=== PATIENT | female | born 1960 | race Caucasian/White ===

== ENCOUNTER → 2020-03-30 20:54 | Outpatient (CLI) | payer OTHER ==
[2020-03-30 23:03] LABS: BASOPHILS 0.8 % (0-2); EOSINOPHILS 5.8 % (0-7); HEMATOCRIT 39.9 % (36.0-48.0); HEMOGLOBIN 13.4 g/dL (12-16); IMMATURE GRANULOCYTES 0.2 % (0-5); LYMPHOCYTES 18.2 % (15-50); MCH 30.1 pg (26.0-34.0); MCHC 33.6 g/dL (31.0-37.0); MCV 89.7 fL (80.0-100.0); MONOCYTES 8.7 % (2-11); NEUTROPHILS 66.3 % (40-80); PLATELET COUNT 371 10x3/uL (130-400); RBC 4.45 10x6/uL (4.00-5.40); WBC 6.1 10x3/uL (4.8-10.8)
[2020-03-30 23:21] LABS: BILIRUBIN - TOTAL 0.24 mg/dL (0.2-1.3); CALCIUM 8.6 mg/dL (8.5-10.1); CREATININE - SERUM 0.9 mg/dL (0.6-1.3); POTASSIUM - SERUM 4.8 mmol/L (3.5-5.1); PROTEIN - SERUM 6.8 g/dL (6.4-8.2)
[2020-03-30 23:35] LABS: ANION GAP 11.8 mmol/L (8-16)
== END | disposition home or self-care (01) ==
LOC: D.LABREF 20:54
PROVIDERS: ATTEND Orthopaedic Surgery
DX: M17.12 Unilateral primary osteoarthritis, left knee (principal); E87.1 Hypo-osmolality and hyponatremia

== ENCOUNTER 2020-08-15 13:18 | Inpatient (IN) | payer OTHER ==
[~2020-08-15] VITALS: Ht 152.4 cm; Wt 73.6 kg
[~2020-08-15 13:18] MED LIST: ADVAIR 250-501 EAC1 INH; AMOXICILLIN500 M1 PO; CITRACAL + D E1 EACH; DETROL LA4 MG PO; DIOVAN320 MG PO; DULCOLAX STOOL100 MG PO; ELIQUIS2.5 MG PO; HYDROCODON-ACE1 EA10 PO; HYDROXYZINE HCL50 MG PO; KLONOPIN0.5 MG PO; LIPITOR20 MG PO; NEURONTIN800 MG PO; NICODERM CQ1 EAC3 TOPICAL; REQUIP3 MG; SINGULAIR10 MG PO; SYNTHROID125 MCG PO; THERMOTABS 1 GM1 GM PO; VISTARIL50 MG PO; ZOFRAN ODT4 MG/UDTAB PO
[2020-09-15] MEDS ORDERED: MUCINEX DM ER1 EAC1 PO (13:50)
[2020-09-15] MEDS ORDERED: CITRACAL + D E1 EACH PO (13:50)
[2020-09-15] MEDS ORDERED: [UNRECOGNIZED DRUG - OTHER] PO (13:51)
[2020-09-15] MEDS ORDERED: OMEPRAZOLE40 MG PO (13:51)
[2020-09-15 15:09] LABS: EOSINOPHILS 8.3 % (0-7); HEMATOCRIT 38.4 % (36.0-48.0); IMMATURE GRANULOCYTES 0.2 % (0-5); LYMPHOCYTE ABS# 1.22 10x3/uL (1.18-3.74); LYMPHOCYTES 20.7 % (15-50); MCHC 33.9 g/dL (31.0-37.0); MCV 85.5 fL (80.0-100.0); MEAN PLATELET VOLUME 8.3 fL (7.4-10.4); MONOCYTES 7.3 % (2-11); NEUTROPHIL ABS# 3.69 10x3/uL (1.56-6.13); NEUTROPHILS 62.5 % (40-80); RBC 4.49 10x6/uL (4.00-5.40); RDW 13.5 % (11.5-14.5); WBC 5.9 10x3/uL (4.8-10.8)
[2020-09-15 15:12] LABS: APTT 32.2 SECONDS (22.8-39.4); INR 0.97 (0.85-1.17); PROTIME 11.9 SECONDS (11.6-15.0)
[2020-09-15 15:13] LABS: PLATELET COUNT 336 10x3/uL (130-400)
[2020-09-15 15:14] LABS: ANION GAP 6.9 mmol/L (8-16); CALCIUM 8.9 mg/dL (8.5-10.1); CARBON DIOXIDE 28.8 mmol/L (21.0-32.0); CREATININE - SERUM 0.9 mg/dL (0.6-1.3); POTASSIUM - SERUM 4.7 mmol/L (3.5-5.1)
[2020-09-15 15:18] LABS: BILIRUBIN NEGATIVE (NEGATIVE); KETONE NEGATIVE (NEGATIVE); NITRITE NEGATIVE (NEGATIVE); UROBILINOGEN NORMAL mg/dL (< 2)
[2020-09-19] VITALS (8 sets, daily range): BP systolic 100–131; BP diastolic 59–76; Ht 152.4 cm; Wt 73.6 kg
--- NOTE | 2020-09-19 11:31 | NUR ---
PLASMA BLADE SET 6/8 BOVIE PAD LEFT THIGH [id number] EXP 03/13/22 TRAFFIC MONITORED IN ANDN OUT OF THE ROOM AND KEPT TO A MINIMUM
--- NOTE | 2020-09-19 14:05 | NUR ---
RECIEVED FROM PACU PER BED. ALERT AND ORIENTED. DRESSING CLEAN DRY AND INTACT WITH RENU COMPRESSED DRAIN TO RIGHT SHOULDER. OXYGEN AT 3L PER NC. SCDS AND FAY HOSE ON BILAT AND CONNECTED TO MACHINE. ASSESSMENT COMPLETED. CALL LIGHT IN REACH
--- NOTE | 2020-09-19 16:15 | NUR ---
UP TO BR FOR THE 3RD TIME. STILL UNABLE TO VOIDE. BLADDER SCAN SHOWED OVER 400CC. I/O CATH USING STERILE TECHNIQUE RETURNED 700CC CLEAR YELLOW URINE.
--- NOTE | 2020-09-19 19:03 | NUR ---
FAMILY BROUGHT FOOD IN FROM OUTSIDE AND PATIENT ATE A LARGE DINNER. NO CHANGES NOTED. DENIES NEEDS.
--- NOTE | 2020-09-19 19:30 | NUR ---
ASSISTED UP TO BATHROOM UNABLE TO VOID, BACK TO BED HODGSON CATH PLACED WITH RETURN OF CLEAR PALE YELLOW URINE 600CC, DENIES PAIN AT THIS TIME, SEE SHIFT ASSESSMENT, CALL LIGHT IN REACH
[2020-09-20 00:20] VITALS: BP 135/74
[2020-09-20 04:00] VITALS: BP 136/73
[2020-09-20 07:37] LABS: CALC OSMOLALITY 243 mosm/kg (275-300); CALCIUM 8.5 mg/dL (8.5-10.1); CARBON DIOXIDE 22.6 mmol/L (21.0-32.0); CHLORIDE - SERUM 87 mmol/L (98-107); CREATININE - SERUM 0.8 mg/dL (0.6-1.3); GLUCOSE 106 mg/dL (74-106); POTASSIUM - SERUM 4.1 mmol/L (3.5-5.1); SODIUM 121 mmol/L (136-145); UREA NITROGEN 12 mg/dL (7-18); eGFR NON AFRICAN AMERICAN 77 mL/min (90-120)
[2020-09-20 07:43] LABS: BASOPHILS 0.1 % (0-2); EOSINOPHILS 0.1 % (0-7); HEMATOCRIT 35.4 % (36.0-48.0); HEMOGLOBIN 11.8 g/dL (12-16); IMMATURE GRANULOCYTES 0.3 % (0-5); LYMPHOCYTE ABS# 1.02 10x3/uL (1.18-3.74); LYMPHOCYTES 6.9 % (15-50); MCH 28.5 pg (26.0-34.0); MCHC 33.3 g/dL (31.0-37.0); MCV 85.5 fL (80.0-100.0); MEAN PLATELET VOLUME 8.4 fL (7.4-10.4); MONOCYTES 7.7 % (2-11); NEUTROPHIL ABS# 12.62 10x3/uL (1.56-6.13); NEUTROPHILS 84.9 % (40-80); PLATELET COUNT 371 10x3/uL (130-400); RBC 4.14 10x6/uL (4.00-5.40); RDW 13.9 % (11.5-14.5); WBC 14.9 10x3/uL (4.8-10.8)
[2020-09-20 07:46] VITALS: BP 125/74
--- NOTE | 2020-09-20 08:03 | NUR ---
RESTING IN BED, NO DISTRESS NOTED, HODGSON TO GRAVITY, DRESSING TO R SHOULDER DRY AND INTACT, DRAIN IN PLACE TO R SHOULDER, CONT TO MONITOR PT O2 SAT, REGISTERED 90% ON ROOM AIR, PT APPLIED O2 PER NC
[2020-09-20] MEDS ORDERED: HYDROXYZINE HCL50 MG PO (08:13)
[2020-09-20] MEDS ORDERED: HYDROCODON-ACE1 EA10 PO (08:13)
--- NOTE | 2020-09-20 08:19 | OP ---
PATIENT NAME: GEORGIA POOLE MEDICAL RECORD: [id number] :56 LOCATION:D. D.1213 ADMISSION DATE:09/19/20 SURGEON: VINH BAKER DO DATE OF OPERATION: 09/19/2020 PROCEDURE PERFORMED: Right reverse total shoulder arthroplasty. PREOPERATIVE DIAGNOSIS: Right shoulder rotator cuff tear arthropathy POSTOPERATIVE DIAGNOSIS: Right shoulder rotator cuff tear arthropathy. INDICATIONS: Ms. Poole is a 60-year-old female who has had right shoulder pain for quite some time. She had the left shoulder replaced at another facility. She wanted the right one done here. She was tired of dealing with the pain and weakness and on exam indeed did have supraspinatus weakness on AP. She had a high riding humeral head indicating rotator cuff tear arthropathy. She wanted something done surgically. She was aware of the risks including infection, bleeding, fracture, damage to the axillary nerve or other nerves in the area, continued pain, loss of motion of the shoulder, blood clots and even and she signed the consent. SURGEON: Vinh Baker DO DESCRIPTION OF PROCEDURE: The patient received a block by anesthesia in the preoperative area, given 900 mg of clindamycin, taken to the operative suite, laid in supine position, given general anesthetic, intubated. She was given a gram of TXA and placed in the beach chair position. The right shoulder was then prepped and draped in sterile fashion. Timeout was performed, everyone was in agreeance with the correct side, site, patient and procedure. I then began by making an incision of the deltopectoral interval. Careful dissection down to the cephalic vein, took it laterally and then made careful dissection down to the pectoralis tendon, released the proximal centimeter so of it and tenodesed the biceps tendon to it. I then followed the bicipital groove up into the shoulder, opened up rotator interval, tagged the supraspinatus and peeled it off the lesser tuberosity. I then cut the humeral head and then exposed the glenoid, removed the labrum, put a centering pin in and reamed in and put a baseplate in, put a 30 screw in the center, 25 on the superior anterior hole and the two 20s on the posterior holes, superior and inferior. I then impacted on the glenosphere, exposed the humerus, reamed and broached. I needed to take more humerus as it was too tight. I removed the trials and cut more humerus. I then went to an 11 stem and trialed the standard tray and it reduced, it fit very well and had good tension on the deltoid as well as the conjoined tendon. I then dislocated that, removed that and put in the actual implants after irrigating it, and it reduced very well, and had good mobility and good tension on the deltoid fibers as well as the conjoined tendon. We then irrigated with 10% povidone iodine with 500 mL of normal saline solution. Bolivar Jang, certified surgical first mate then irrigated that out, put a drain exiting posteriorly, and then put in Davina and vancomycin and tobramycin powder, then closed the wound with 2-0 Vicryl in inverted interrupted fashion, 4-0 Monocryl ran on the skin and Prineo glue on the skin. I then secured the drain with two Tegaderms and then put Telfa and Tegaderm on the incision. She was awakened, put in a sling, taken to recovery in stable condition. Blood loss was approximately 200 mL. COMPLICATIONS: None. OPERATIVE REPORT [id number] GEORGIA POOLE TRANSINT:[id number] Voice Confirmation ID: [id number] DOCUMENT ID: [id number] VINH BAKER DO at 0819 CC: [id number] DICTATION DATE: 09/19/20 1207 OIL PUMP STATION OPERATOR CHIEF: 09/19/20 1615 ADM IN [facility] [id number] [place] [address]
--- NOTE | 2020-09-20 08:42 | NUR ---
IV D/C TIP INTACT, HODGSON REMOVED, PT EDUCATED ON S/S OF INFECTION
--- NOTE | 2020-09-20 09:20 | NUR ---
RENU DRAIN REMOVED, MARINA WELL, REVIEWED DC PAPERS, RX PROVIDED
--- NOTE | 2020-09-20 09:40 | NUR ---
TAKEN TO PRIVATE VEHICLE PER W/C, MARINA WELL
--- NOTE | 2020-09-20 20:46 | MORECARE ---
CASE MANAGEMENT DISCHARGE SUMMARY PATIENT: GEORGIA POOLE UNIT: [id number] ADM DATE: 09/19/20 AGE: 60 : 56 SEX: F ROOM/BED: D.1213 AUTHOR: PARTH,DOC PHYSICIAN: REFERRING PHYSICIAN: RUDI BAKER DO DATE OF SERVICE: 09/20/20 Discharge Plan Patient Name: GEORGIA POOLE Facility: [facility]:[place] : 1960 Planned Disposition: Home Anticipated Discharge Date: Discharge Date: 09/20/2020 Expected LOS: Initial Reviewer: [email or web address] Initial Review Date: 09/19/2020 Generated: 09/20/20 9:45 pm Comments DCP- Discharge Planning Updated by [email or web address]: Megan Dasilva on 09/20/20 7:[address] Patient Name: GEORGIA POOLE Admission Status: Elective Accout number: [id number] Admission Date: 09-19-2020 : 1960 Admission Diagnosis: Attending: RUDI BAKER Current LOS: 1 Anticipated DC Date: Planned Disposition: Home Primary Insurance: [employer] Discharge Planning Comments: CM spoke with patient to complete initial dc planning assessment. CM educated patient on the CM role and verbal consent given by patient to complete assessment. Patient lives at home with family. Patient is independent. At discharge patient plans to return home and feels this is a safe discharge. CM discussed availability of home health, rehab services, and medical equipment. Patient will have family to transport home. Patient denied known discharge needs at this time. CM will continue to follow and will assist as needed with dc plans/needs. Assembler Metal Furniture: Megan Dasilva DCPIA - Discharge Planning Initial Assessment Updated by [email or web address]: Megan Dasilva on 09/20/20 8:45 pm * Is the patient Alert and Oriented? Yes * How many steps to enter\exit or inside your home? * PCP WARE * [facility] [address] [facility] - [facility] * Preadmission Environment Home with Family * ADLs Independent * Equipment Walker * List name and contact numbers for known caregivers / representatives who currently or will assist patient after discharge: ZEHRA HAYES - DAUGHTER - [phone] * Verbal permission to speak to the caregivers and representatives has been obtained from the patient. Yes * Community resources currently utilized None * Additional services required to return to the preadmission environment? No * Can the patient safely return to the preadmission environment? Yes * Has this patient been hospitalized within the prior 30 days at any hospital? No Patient Name: GEORGIA POOLE Page 27815 at 2046 All edits/amendments must be made on the electronic document DICTATION DATE: 09/20/202045 DISTRIBUTION DESIGNER: HAKEEM 09/20/202045 RPT#: [id number] DC DATE:09/20/20 STATUS: DIS IN [facility] [address] [place] [address] END OF REPORT
== END 2020-09-20 09:40 | disposition home or self-care (01) | DRG 483 ==
LOC: D.M3 09-19 07:45 → D.OPS 09-19 07:45 → EDSTATUS 09-19 08:00 → D.OPS 09-19 09:30 → D.M3 09-19 09:30 → D.OPS 09-19 09:31 → D.M3 09-20 09:40
PROVIDERS: Family Medicine Adult Medicine; ADMIT Orthopaedic Surgery; ATTEND Orthopaedic Surgery
PROC: 0RRJ00Z Replacement of Right Shoulder Joint with Reverse Ball and Socket Synthetic Substitute, Open Approach (ICD-10-PCS; principal; 2020-09-19 09:45)
DX: M19.011 Primary osteoarthritis, right shoulder (principal); E03.9 Hypothyroidism, unspecified; E78.5 Hyperlipidemia, unspecified; I10 Essential (primary) hypertension; G89.29 Other chronic pain; M41.9 Scoliosis, unspecified; F41.8 Other specified anxiety disorders; F31.9 Bipolar disorder, unspecified

== ENCOUNTER 2020-09-25 08:46 | Inpatient (IN) | payer OTHER ==
[~2020-09-25] VITALS: Ht 152.4 cm; Wt 74.1 kg
[~2020-09-25 08:46] MED LIST changes: +CITRACAL + D E1 EACH PO; +MUCINEX DM ER1 EAC1 PO; +OMEPRAZOLE40 MG PO; +[UNRECOGNIZED DRUG - OTHER] PO
--- NOTE | 2020-09-25 09:05 | NUR ---
NASAL SWAB COLLECTED,LABELED AT BS AND SENT TO LAB
--- NOTE | 2020-09-25 09:14 | NUR ---
SL SITEDD LEFT HAND/THUMB AND BCX 1 DRAWN FROM SITE
[2020-09-25 09:59] LABS: BASOPHILS 0.3 % (0-2); EOSINOPHILS 3.8 % (0-7); HEMATOCRIT 31.7 % (36.0-48.0); HEMOGLOBIN 10.7 g/dL (12-16); IMMATURE GRANULOCYTES 0.5 % (0-5); LYMPHOCYTE ABS# 0.64 10x3/uL (1.18-3.74); LYMPHOCYTES 6.7 % (15-50); MCH 28.5 pg (26.0-34.0); MCHC 33.8 g/dL (31.0-37.0); MCV 84.5 fL (80.0-100.0); MONOCYTES 7.7 % (2-11); NEUTROPHIL ABS# 7.75 10x3/uL (1.56-6.13); PLATELET COUNT 307 10x3/uL (130-400); RBC 3.75 10x6/uL (4.00-5.40); RDW 13.7 % (11.5-14.5); WBC 9.6 10x3/uL (4.8-10.8)
[2020-09-25 10:04] LABS: APTT 27.2 SECONDS (22.8-39.4); INR 1.17 (0.85-1.17); PROTIME 13.8 SECONDS (11.6-15.0)
[2020-09-25 10:06] LABS: SARS-CoV-2 ANTIGEN NEGATIVE- SARS-COV-2 (NEGATIVE)
[2020-09-25 10:09] LABS: ALBUMIN 2.7 g/dL (3.4-5.0); ALKALINE PHOSPHATASE 118 U/L (30-120); ALT (SGPT) 28 U/L (10-68); BILIRUBIN - TOTAL 0.52 mg/dL (0.2-1.3); CALC OSMOLALITY 241 mosm/kg (275-300); CALCIUM 8.5 mg/dL (8.5-10.1); CARBON DIOXIDE 30.5 mmol/L (21.0-32.0); CHLORIDE - SERUM 86 mmol/L (98-107); CKMB 2.8 U/L (0.0-3.6); CREATINE KINASE 153 UL (21-215); CREATININE - SERUM 0.6 mg/dL (0.6-1.3); GLUCOSE 84 mg/dL (74-106); PRO BNP 634 pg/mL (0-125); PROTEIN - SERUM 6.4 g/dL (6.4-8.2); SODIUM 121 mmol/L (136-145); TROPONIN-I < 0.017 ng/mL (0.000-0.060); UREA NITROGEN 9 mg/dL (7-18); eGFR NON AFRICAN AMERICAN > 90 mL/min (90-120)
[2020-09-25 10:10] LABS: POTASSIUM - SERUM 2.8 mmol/L (3.5-5.1)
--- NOTE | 2020-09-25 10:25 | NUR ---
COVID ANTIGEN NEGATIVE, DISCUSSED WITH DR OTT RE: SWABBING FOR SEND OUT COVID. DR OTT REPORTS NO NEED OK TO REMOVE FROM ISOLATION. PT NOTIFIED
[2020-09-25 11:11] VITALS: BP 141/87
--- NOTE | 2020-09-25 12:13 | NUR ---
REPORT TO JOSE COLON
[2020-09-25 12:25] VITALS: BP 145/87
--- NOTE | 2020-09-25 12:27 | NUR ---
TRANSPORTED TO ROOM #2208 VIA STRETCHER WITH [employer]IL CARRIER AND O2 @ 2L PNC CONDITION STABLE
--- NOTE | 2020-09-25 14:46 | MORECARE ---
CASE MANAGEMENT DISCHARGE SUMMARY PATIENT: GEORGIA POOLE UNIT: [id number] ADM DATE: 09/25/20 AGE: 60 : 56 SEX: F ROOM/BED: D.2206 AUTHOR: PARTH,DOC PHYSICIAN: REFERRING PHYSICIAN: OSMANY KRISHNAMURTHY MD DATE OF SERVICE: 09/25/20 Discharge Plan Patient Name: GEORGIA POOLE Facility: [facility]:[place] : 1960 Planned Disposition: Home or Self Care Anticipated Discharge Date: Discharge Date: Expected LOS: Initial Reviewer: [email or web address] Initial Review Date: 09/25/2020 Generated: 09/25/20 3:45 pm Comments DCP- Discharge Planning Updated by [email or web address]: Jazmín Aviles on 09/25/20 12:[address] Patient Name: GEORGIA POOLE Admission Status: ER Accout number: [id number] Admission Date: 09-25-2020 : 1960 Admission Diagnosis: Attending: HERNANDEZ Current LOS: 1 Anticipated DC Date: Planned Disposition: Home or Self Care Primary Insurance: [employer] Discharge Planning Comments: CM met with patient to complete initial dc planning assessment. CM educated patient on the CM role and verbal consent given by patient to complete assessment. Patient lives at home & her daughter lives with her. Her daughter will be her water tanker driver home when she is discharged. At discharge patient plans to return home and feels this is a safe discharge. CM discussed availability of home health, rehab services, and medical equipment. Patient denied known discharge needs at this time. CM will continue to follow and will assist as needed with dc plans/needs Mobile Home Park Manager: Jazmín Aviles DCPIA - Discharge Planning Initial Assessment Updated by [email or web address]: Jazmín Aviles on 09/25/20 2:41 pm * Is the patient Alert and Oriented? Yes * How many steps to enter\exit or inside your home? * PCP BARNEY WARE * Pharmacy [facility] [address] * Preadmission Environment Home with Family * ADLs Independent * Equipment Rolling Walker * List name and contact numbers for known caregivers / representatives who currently or will assist patient after discharge: ZEHRA MARTINON [phone] * Verbal permission to speak to the caregivers and representatives has been obtained from the patient. N/A * Community resources currently utilized None * Additional services required to return to the preadmission environment? No * Can the patient safely return to the preadmission environment? Yes * Has this patient been hospitalized within the prior 30 days at any hospital? No Patient Name: GEORGIA POOLE Page 53417 at 1446 All edits/amendments must be made on the electronic document DICTATION DATE: 09/25/201444 FIRER LOW PRESSURE: HAKEEM 09/25/201444 RPT#: [id number] DC DATE: STATUS: ADM IN [facility] [address] [place] [address] END OF REPORT
[2020-09-25 16:51] VITALS: BP 168/69
[2020-09-25 18:37] VITALS: BP 93/73; Ht 152.4 cm; Wt 74.1 kg
--- NOTE | 2020-09-25 20:00 | NUR ---
PT REPORTS SHE TAKES DAILY DOSE OF GABEPENTIN ALL AT ONE TIME AT HOME. NORMALLY 800MG TID, SHE TAKES 2400MG QHS. RELAYED TO [facility]. ORDERS CHANGED PER ELMIRA TO HOW PT IS SUPPOSED TO BE TAKING THEM. CTM.
[2020-09-25 21:33] VITALS: BP 144/59
[2020-09-26 00:39] VITALS: BP 136/73
[2020-09-26 05:15] VITALS: BP 159/80
--- NOTE | 2020-09-26 05:20 | NUR ---
I have reviewed this patient and I concur with the Shift Assessment completed by the Licensed Practical Nurse today this shift.
[2020-09-26 06:07] LABS: CALC OSMOLALITY 249 mosm/kg (275-300); CALCIUM 8.1 mg/dL (8.5-10.1); CARBON DIOXIDE 29.2 mmol/L (21.0-32.0); CHLORIDE - SERUM 90 mmol/L (98-107); CREATININE - SERUM 0.7 mg/dL (0.6-1.3); GLUCOSE 123 mg/dL (74-106); POTASSIUM - SERUM 3.1 mmol/L (3.5-5.1); SODIUM 124 mmol/L (136-145); UREA NITROGEN 10 mg/dL (7-18); eGFR NON AFRICAN AMERICAN 90 mL/min (90-120)
[2020-09-26 06:45] LABS: BASOPHILS 0.1 % (0-2); EOSINOPHILS 1.1 % (0-7); HEMATOCRIT 29.5 % (36.0-48.0); HEMOGLOBIN 9.9 g/dL (12-16); IMMATURE GRANULOCYTES 0.9 % (0-5); LYMPHOCYTE ABS# 0.64 10x3/uL (1.18-3.74); LYMPHOCYTES 8.7 % (15-50); MCH 28.4 pg (26.0-34.0); MCHC 33.6 g/dL (31.0-37.0); MCV 84.5 fL (80.0-100.0); MEAN PLATELET VOLUME 8.3 fL (7.4-10.4); MONOCYTES 7.1 % (2-11); NEUTROPHIL ABS# 6.05 10x3/uL (1.56-6.13); NEUTROPHILS 82.1 % (40-80); RBC 3.49 10x6/uL (4.00-5.40); RDW 13.9 % (11.5-14.5); WBC 7.4 10x3/uL (4.8-10.8)
--- NOTE | 2020-09-26 06:45 | NUR ---
RECEIVED BEDSIDE REPORT. PT LAYING IN BED A&O. PIV TO LEFT FOREARM PATENT AND INFUSING, NO REDNESS OR SWELLING. O2 SAT 98% ON 2L VIA NC. INCISION TO RIGHT SHOULDER, DRSG C/D/I, SLING IN PLACE. ABLE TO AMBULATE AD JOJO. EDUCATED PT ON CL AND NEEDS, VERBALIZED UNDERSTANDING. BED LOW, CL IN REACH.
[2020-09-26 07:06] LABS: PLATELET COUNT 371 10x3/uL (130-400)
[2020-09-26 07:43] VITALS: BP 167/61
--- NOTE | 2020-09-26 09:15 | NUR ---
PT C/O PAIN 02/20, PROVIDED MEDS PER ORDER, TOLERATED WELL. BED LOW, CL IN REACH.
[2020-09-26 12:35] VITALS: BP 136/63
[2020-09-26 15:00] VITALS: BP 156/77
--- NOTE | 2020-09-26 15:54 | NUR ---
PT C/O PAIN 02/20, PROVIDED MEDS PER ORDER, TOLERATED WELL. BED LOW, CL IN REACH.
[2020-09-26 21:11] VITALS: BP 113/55
--- NOTE | 2020-09-27 01:52 | NUR ---
REC'D WALKING ROUNDS CHGE OF SHIFT SITTING ON SIDE OF BED.SLING INTACT TO RIGHT ARM.FINGERS AND NAILBEDS PINK AND WARM,BLANCHES WELL GOOD RADIAL PULSE.WIGGLES WITHOUT DIFFICULTY. WILL CONTINUE TO MONITOR FOR ANY CHGES NEUROVASCULAR STATUS AND FOLLOW CURRENT PLAN OF CAREIV INFILTRATED RESITED LAC #20 X1 STICK.2230)PULLED IV OUT RESITED BY CHILDBIRTH EDUCATOR X1 STICK LEFT WRIST
[2020-09-27 04:37] VITALS: BP 123/74
--- NOTE | 2020-09-27 05:00 | NUR ---
I have reviewed this patient and I concur with the Shift Assessment completed by the Licensed Practical Nurse today this shift.
[2020-09-27 05:35] LABS: BASOPHILS 0.2 % (0-2); EOSINOPHILS 1.8 % (0-7); HEMOGLOBIN 9.5 g/dL (12-16); LYMPHOCYTE ABS# 1.19 10x3/uL (1.18-3.74); LYMPHOCYTES 11.5 % (15-50); MCHC 32.8 g/dL (31.0-37.0); MCV 85.5 fL (80.0-100.0); MEAN PLATELET VOLUME 7.8 fL (7.4-10.4); NEUTROPHIL ABS# 8.03 10x3/uL (1.56-6.13); NEUTROPHILS 77.5 % (40-80); PLATELET COUNT 421 10x3/uL (130-400); RBC 3.39 10x6/uL (4.00-5.40); WBC 10.4 10x3/uL (4.8-10.8)
[2020-09-27 05:54] LABS: ALBUMIN 2.7 g/dL (3.4-5.0); ALKALINE PHOSPHATASE 113 U/L (30-120); BILIRUBIN - TOTAL 0.33 mg/dL (0.2-1.3); CALC OSMOLALITY 258 mosm/kg (275-300); CALCIUM 8.3 mg/dL (8.5-10.1); CARBON DIOXIDE 28.1 mmol/L (21.0-32.0); CHLORIDE - SERUM 94 mmol/L (98-107); CREATININE - SERUM 0.7 mg/dL (0.6-1.3); GLUCOSE 121 mg/dL (74-106); POTASSIUM - SERUM 3.5 mmol/L (3.5-5.1); PROTEIN - SERUM 6.4 g/dL (6.4-8.2); SODIUM 129 mmol/L (136-145); UREA NITROGEN 10 mg/dL (7-18); eGFR NON AFRICAN AMERICAN 90 mL/min (90-120)
[2020-09-27 05:56] LABS: ALT (SGPT) 40 U/L (10-68)
[2020-09-27 07:47] VITALS: BP 154/54
[2020-09-27 12:25] VITALS: BP 177/68
[2020-09-27 17:30] VITALS: BP 173/78
--- NOTE | 2020-09-27 18:50 | NUR ---
bedside shift report completed pt awake alert denies needs, would like pm meds at 8 pm this evenin. no needs reported at this time
[2020-09-27 20:59] VITALS: BP 164/87
[2020-09-28] VITALS: BP 175/70
[2020-09-28 04:00] VITALS: BP 179/91
--- NOTE | 2020-09-28 04:36 | NUR ---
ATTEMPTED WALK TEST FOR HOME O2 QUALIFICATION 02 SAT 78% ON RA AT REST O2 SAT IMPROVED TO 92% ON 2 L NC WITHIN 1 MINUTE OF REAPPLYING O2
[2020-09-28 06:28] LABS: BASOPHILS 0.2 % (0-2); EOSINOPHILS 4.7 % (0-7); HEMATOCRIT 32.8 % (36.0-48.0); HEMOGLOBIN 10.7 g/dL (12-16); IMMATURE GRANULOCYTES 1.3 % (0-5); LYMPHOCYTE ABS# 1.45 10x3/uL (1.18-3.74); LYMPHOCYTES 13.5 % (15-50); MCH 28.2 pg (26.0-34.0); MCHC 32.6 g/dL (31.0-37.0); MCV 86.5 fL (80.0-100.0); NEUTROPHIL ABS# 7.85 10x3/uL (1.56-6.13); NEUTROPHILS 73.3 % (40-80); PLATELET COUNT 499 10x3/uL (130-400); RBC 3.79 10x6/uL (4.00-5.40); RDW 14.3 % (11.5-14.5); WBC 10.7 10x3/uL (4.8-10.8)
[2020-09-28 07:01] LABS: ALKALINE PHOSPHATASE 123 U/L (30-120); ALT (SGPT) 43 U/L (10-68); CALC OSMOLALITY 261 mosm/kg (275-300); CALCIUM 8.3 mg/dL (8.5-10.1); CARBON DIOXIDE 31.8 mmol/L (21.0-32.0); CHLORIDE - SERUM 93 mmol/L (98-107); CREATININE - SERUM 0.7 mg/dL (0.6-1.3); GLUCOSE 111 mg/dL (74-106); POTASSIUM - SERUM 3.9 mmol/L (3.5-5.1); PROTEIN - SERUM 6.3 g/dL (6.4-8.2); SODIUM 131 mmol/L (136-145); UREA NITROGEN 8 mg/dL (7-18); eGFR NON AFRICAN AMERICAN 90 mL/min (90-120)
--- NOTE | 2020-09-28 07:50 | NUR ---
ALERT AND ORIENTED. ASSESSMENT COMPLETE. DAUGHTER AT BEDSIDE. DENIES NEEDS. BED LOW. CALL CASTILLO AND PERSONAL ITEMS IN REACH. WILL CONTINUE TO MONITOR.
[2020-09-28 08:16] VITALS: BP 160/73
--- NOTE | 2020-09-28 09:18 | NUR ---
DC ORDER IN FOR PATIENT. PATIENT WAS STARTED ON IV KEPPRA BUT HAS NOT RECEIVED D/T NO IV. PATIENT TO DC ON PO KEPPRA. DR HARRIS PAGED TO NOTIFY THAT PATIENT HAS NOT RECEIVED KEPPRA AND MAKE SURE STILL WANTS TO DC PATIENT.
--- NOTE | 2020-09-28 10:46 | NUR ---
WALK TEST PERFORMED. O2 SAT 94% ON ROOM AIR AT REST. DURING WALK TEST, O2 DROPPED TO 84% AND CAME BACK UP TO 88% AFTER DEEP BREATHING. O2 REPLACED AT 2L AND PATIENT SAT 96% ON 2L DURING AMBULATION.
[2020-09-28] MEDS ORDERED: VIBRAMYCIN 100100 MG PO (11:52)
[2020-09-28] MEDS ORDERED: FLORAJEN3 CAPS460 MG PO (11:52)
[2020-09-28] MEDS ORDERED: PREDNISONE10 MG PO (11:53)
[2020-09-28] MEDS ORDERED: ALBUTEROL SULF8.5 GM INH (12:17)
--- NOTE | 2020-09-28 12:35 | NUR ---
DC EDUCATION PROVIDED BOTH WRITEN AND VERBAL. VERBALIZED UNDERSTANDING. DENIES FURTHER QUESTIONS. IV REMOVED FROM LEFT HAND WITH TIP INTACT. REFUSES TO WAIT ON HOME O2. NOW BEING DELIVERED TO PATIENT'S HOME. PATIENT DC HOME WITH DAUGHTER WITH ALL BELONGINGS.
== END 2020-09-28 12:37 | disposition home or self-care (01) | DRG 193 ==
LOC: D.ER 08:46 → D.MS 12:26
PROVIDERS: Family Medicine; ADMIT Family Medicine; ATTEND Family Medicine
DX: J18.9 Pneumonia, unspecified organism (principal); J96.01 Acute respiratory failure with hypoxia; J44.1 Chronic obstructive pulmonary disease with (acute) exacerbation; J44.0 Chronic obstructive pulmonary disease with (acute) lower respiratory infection; J45.901 Unspecified asthma with (acute) exacerbation; E87.1 Hypo-osmolality and hyponatremia; F31.30 Bipolar disorder, current episode depressed, mild or moderate severity, unspecified; E87.6 Hypokalemia; D64.9 Anemia, unspecified; I10 Essential (primary) hypertension; E78.5 Hyperlipidemia, unspecified; G89.29 Other chronic pain; M54.9 Dorsalgia, unspecified; N95.9 Unspecified menopausal and perimenopausal disorder; F41.9 Anxiety disorder, unspecified

== ENCOUNTER 2020-10-21 14:14 | Observation (INO) | payer OTHER ==
[~2020-10-21] VITALS: Ht 152.4 cm; Wt 68.2 kg
[~2020-10-21 14:14] MED LIST changes: +ALBUTEROL SULF8.5 GM INH; +FLORAJEN3 CAPS460 MG PO; +PREDNISONE10 MG PO; +VIBRAMYCIN 100100 MG PO
[2020-10-21 14:38] LABS: BASOPHILS 0.5 % (0-2); EOSINOPHILS 12.5 % (0-7); HEMATOCRIT 33.5 % (36.0-48.0); IMMATURE GRANULOCYTES 0.2 % (0-5); LYMPHOCYTE ABS# 1.07 10x3/uL (1.18-3.74); LYMPHOCYTES 16.3 % (15-50); MCH 28.6 pg (26.0-34.0); MCHC 32.8 g/dL (31.0-37.0); MCV 87.2 fL (80.0-100.0); MEAN PLATELET VOLUME 8.1 fL (7.4-10.4); MONOCYTES 8.7 % (2-11); NEUTROPHIL ABS# 4.06 10x3/uL (1.56-6.13); NEUTROPHILS 61.8 % (40-80); RBC 3.84 10x6/uL (4.00-5.40); RDW 14.6 % (11.5-14.5); WBC 6.6 10x3/uL (4.8-10.8)
[2020-10-21 14:39] LABS: PLATELET COUNT 385 10x3/uL (130-400)
[2020-10-21 14:46] LABS: APTT 33.1 SECONDS (22.8-39.4); CALC OSMOLALITY 257 mosm/kg (275-300); CALCIUM 8.9 mg/dL (8.5-10.1); CHLORIDE - SERUM 92 mmol/L (98-107); CREATININE - SERUM 0.7 mg/dL (0.6-1.3); GLUCOSE 100 mg/dL (74-106); INR 1.03 (0.85-1.17); POTASSIUM - SERUM 4.5 mmol/L (3.5-5.1); PROTIME 12.5 SECONDS (11.6-15.0); SODIUM 129 mmol/L (136-145); UREA NITROGEN 11 mg/dL (7-18); eGFR NON AFRICAN AMERICAN 90 mL/min (90-120)
[2020-10-21 15:04] LABS: ALBUMIN 3.2 g/dL (3.4-5.0); ALKALINE PHOSPHATASE 145 U/L (30-120); ALT (SGPT) 20 U/L (10-68); BILIRUBIN - TOTAL 0.37 mg/dL (0.2-1.3); CKMB 2.6 U/L (0.0-3.6); CREATINE KINASE 112 UL (21-215); PRO BNP 86 pg/mL (0-125); PROTEIN - SERUM 7.3 g/dL (6.4-8.2); TROPONIN-I < 0.017 ng/mL (0.000-0.060)
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
[2020-10-21] MEDS ORDERED: COLACE100 MG PO (17:48)
[2020-10-21] MEDS ORDERED: HYDROCODON-ACE1 EA10 PO (17:49)
[2020-10-21] MEDS ORDERED: NEURONTIN800 MG PO (17:52)
[2020-10-21 17:59] VITALS: BP 142/58; Ht 152.4 cm; Wt 68.2 kg
--- NOTE | 2020-10-21 19:30 | NUR ---
RECEIVED REPORT, WILL ASSUME CARE OF PT, DENIES ANY NEEDS AT THIS TIME, DAUGHTER AT BEDSIDE, BED IS LOW, SRX2, CALL LIGHT IN REACH, WILL CONTINUE PLAN OF CARE
[2020-10-21 19:58] VITALS: BP 141/90
[2020-10-22 05:34] LABS: BASOPHILS 0.2 % (0-2); EOSINOPHILS 0 % (0-7); HEMATOCRIT 33.9 % (36.0-48.0); HEMOGLOBIN 11.1 g/dL (12-16); LYMPHOCYTE ABS# 0.44 10x3/uL (1.18-3.74); MCH 28.5 pg (26.0-34.0); MCHC 32.7 g/dL (31.0-37.0); MCV 86.9 fL (80.0-100.0); MEAN PLATELET VOLUME 8.6 fL (7.4-10.4); MONOCYTES 1.4 % (2-11); NEUTROPHIL ABS# 5.77 10x3/uL (1.56-6.13); NEUTROPHILS 91.4 % (40-80); RDW 14.5 % (11.5-14.5); WBC 6.3 10x3/uL (4.8-10.8)
[2020-10-22 05:36] LABS: PLATELET COUNT 498 10x3/uL (130-400)
[2020-10-22 06:14] VITALS: BP 133/77
[2020-10-22 06:15] LABS: ALBUMIN 3.2 g/dL (3.4-5.0); ANION GAP 18.2 mmol/L (8-16); BILIRUBIN - TOTAL 0.32 mg/dL (0.2-1.3); CALCIUM 9.2 mg/dL (8.5-10.1); CARBON DIOXIDE 22.2 mmol/L (21.0-32.0); MAGNESIUM - SERUM 2.2 mg/dL (1.8-2.4); POTASSIUM - SERUM 4.4 mmol/L (3.5-5.1); PROTEIN - SERUM 7.6 g/dL (6.4-8.2)
--- NOTE | 2020-10-22 07:20 | NUR ---
RECIEVE REPORT. ALERT AND ORIENTED X4. PATIENT STATES, "I FEEL MUCH BETTER SO WHAT TIME CAN I LEAVE?" EXPLAIN NO DISCHARGE IS ORDERED AT THIS TIME. ENCOURAGE TO WAIT UNTIL DOCTORS ROUND. DENIES ANY NEEDS. CONTINUE PLAN OF CARE AND SAFETY PRECAUTIONS.
[2020-10-22 08:07] VITALS: BP 128/68
[2020-10-22] MEDS ORDERED: PREDNISONE10 MG PO (09:57)
[2020-10-22 12:42] VITALS: BP 105/63
--- NOTE | 2020-10-22 12:58 | NUR ---
ALERT AND ORIENTED X4. SITTING UP IN BED. DAUGHTER AT BEDSIDE. DC RT FA IV TIP INTACT. DISCHARGE INSTRUCTIONS GIVEN VERBALLY AND WRITTEN. DISCHARGE PAPERS SIGNED ON CHART. ESCORT TO RIDE VIA WHEELCHAIR. REMAINS FREE FROM INJURY. PORTABLE OXYGEN DELIVERED.
== END 2020-10-22 12:59 | disposition home or self-care (01) ==
LOC: D.ER 14:14 → OBSVTIME 16:40 → D.M2 16:40
PROVIDERS: Family Medicine; ADMIT Emergency Medicine; ATTEND Emergency Medicine
DX: J44.1 Chronic obstructive pulmonary disease with (acute) exacerbation (principal); I10 Essential (primary) hypertension; E78.5 Hyperlipidemia, unspecified; G89.29 Other chronic pain; F31.9 Bipolar disorder, unspecified; E87.1 Hypo-osmolality and hyponatremia

== ENCOUNTER → 2020-12-27 10:52 | Outpatient (CLI) | payer OTHER ==
[2020-10-21 17:59] VITALS: BMI 29.3
[~2020-12-27 10:52] MED LIST changes: +COLACE100 MG PO
== END | disposition home or self-care (01) ==
LOC: D.LAB 10:52
PROVIDERS: ATTEND Internal Medicine Pulmonary Disease
DX: J44.9 Chronic obstructive pulmonary disease, unspecified (principal); Z11.52 Encounter for screening for COVID-19

== ENCOUNTER → 2021-01-01 09:57 | Outpatient (CLI) | payer OTHER ==
[2020-10-21 17:59] VITALS: BMI 29.3
== END | disposition home or self-care (01) ==
LOC: D.LAB 09:15 → D.RT 10:00
PROVIDERS: ATTEND Internal Medicine Pulmonary Disease
DX: J44.9 Chronic obstructive pulmonary disease, unspecified (principal)